=== PATIENT | female | born 1935 | race Caucasian/White ===

== ENCOUNTER 2017-05-05 17:26 | Emergency (ER) | payer OTHER, MEDICARE ==
[~2017-05-05] VITALS: Ht 162.6 cm; Wt 73.5 kg
[~2017-05-05 17:26] MED LIST: ALPRAZOLAM0.25 MG PO; AMLODIPINE BESYL5 MG PO; ASCORBIC ACID500 M3 PO; ASPIRIN81 M1 PO; CALCIUM + D 601 EACH PO; CALCIUM 600 +1 EAC1 PO; FIBER 61 EACH PO; FISH OIL 1,2001 EAC4 PO; HYDROCHLOROTHIA25 MG PO; LEVOTHYROXINE50 MCG PO; LO-DOSE ASPIRIN81 M1 PO; OMEGA-31000 MG PO; PRAVACHOL40 MG PO; PRAVASTATIN SOD40 MG PO; PRESERVISION T1 EACH PO; RANITIDINE HCL300 MG PO; SERTRALINE HCL50 MG PO; SYSTANE 0.3-0.1 EACH BOTH EYES; VITAMIN C500 M1 PO; VITAMIN D400 INTUNI PO; ZESTRIL,PRINIVIL5 MG PO
[2017-05-05 18:21] LABS: EOSINOPHIL (%) 0.4 % (0-5); EOSINOPHIL COUNT 0.1 K/uL (0-0.3); HEMATOCRIT 40.2 % (36.0-46.0); IMMATURE GRANULOCYTE (%) 0.3 % (0.0-0.7); INSTRUMENT ABS NEUTROPHIL CT 6.7 K/uL; LYMPHOCYTE COUNT 3.9 K/uL (1.0-2.8); MCH 28.8 PG (29.0-34.0); MCHC 32.8 G/DL (30.0-36.0); MCV 87.8 FL (83-99); MEAN PLAT.VOLUME 10.3 uM^3 (9.5-12.4); MONOCYTE (%) 6.3 % (3-12); MONOCYTE COUNT 0.7 K/uL (0-0.8); NEUTROPHIL (%) 58.3 % (45-76); NEUTROPHIL COUNT 6.7 K/uL (1.8-6.4); PLATELET COUNT 234 K/uL (156-360); RBC DIS.WIDTH-CV 13.7 % (11.8-14.6); RBC DIS.WIDTH-SD 43.9 % (39-53); RED BLOOD COUNT 4.58 M/uL (3.80-5.20); WHITE BLOOD COUNT 11.4 K/uL (4.1-10.2)
[2017-05-05 18:29] LABS: CHLORIDE 102 mEq/L (99-109); POTASSIUM 3.7 mEq/L (3.7-5.4); SODIUM 138 mEq/L (136-147)
[2017-05-05 18:31] LABS: GLUCOSE 142 mg/dL (70-99)
[2017-05-05 18:32] LABS: ANION GAP 9 MEQ/L (2-14)
[2017-05-05 18:35] LABS: GFR ESTIMATE (CALCULATED) > 59 mL/min/; UREA NITROGEN (BUN) 18 mg/dL (9-23)
[2017-05-05] MEDS ORDERED: ANTIVERT25 MG PO (22:00)
[2017-05-05 22:05] VITALS: BP 132/53
== END 2017-05-05 22:09 | disposition home or self-care (01) ==
LOC: EME 17:26
PROVIDERS: Emergency Medicine
DX: R42 Dizziness and giddiness (principal); R51 Headache; I10 Essential (primary) hypertension; E78.5 Hyperlipidemia, unspecified; Z86.73 Personal history of transient ischemic attack (TIA), and cerebral infarction without residual deficits; Z79.82 Long term (current) use of aspirin
CPT/HCPCS: 70450; 80048; 85025; 93005; 99281; 99285